=== PATIENT | male | born 1955 | race Caucasian/White ===

== ENCOUNTER 2023-06-18 07:22 | Inpatient (IN) ==
--- NOTE | 2023-06-11 12:57 | Anesthesiology Consultation ---
Date of Service June 11, 2023 Assessment & Plan (1) Encounter for pre-operative examination: - will request most recent ICD report and cardiology office note. - check BSG am DOS. - ICD: does not need ICD rep perioperatively from anesthesia perspective per Dr. Breaux 01/22/23. - medical clearance 06/02/23: "...cleared for scheduled surgery..." - cardiology clearance 05/13/23: "...preoperative cardiac risk assessment...reviewed the clinical history, medications and relevant noninvasive testing. Based on these findings, I would consider the patient to be a low risk from a cardiac standpoint...no cardiac contraindications for the planned surgery..." - Per cytotechnologist supervisor on 06/04/23: No known infectious disease contacts, current infectious disease symptoms in past 10 days or COVID positive test result in the past 30 days. Chart Review Chart Review: Pending: Refer to Additional Notes / Consult section and Patient NOT seen in Pre Admission Testing History Surgery Operation Date: 06/18/23 07:45 Proposed Procedures p L3-L5 Decompression and Fusion, Possible L2-L3, Hardware Removal L5-S1 with Spinal Cord Monitoring - Yeison Ernandez, Height/Weight Height: 6 ft Weight: 75.296 kg Allergies Allergy/AdvReac Type Severity Reaction Status Date / Time Bactrim Allergy Intermediate HIVES Unverified 02/07/14 07:17 methocarbamol Allergy Intermediate Hives Verified 06/04/23 08:45 protamine Allergy Intermediate Unknown Verified 06/04/23 08:45 sulfamethoxazole [Bactrim] Allergy Intermediate Hives Verified 06/04/23 08:45 trimethoprim [Bactrim] Allergy Intermediate Hives Verified 06/04/23 08:45 atorvastatin AdvReac Intermediate Sore joints Verified 06/04/23 08:45 Medications Home Medications Medication Instructions Recorded Confirmed Last Taken aspirin 81 mg capsule 81 mg PO QAM 01/15/23 06/04/23 Unknown insulin glargine 100 unit/mL (3 40 unit subcut BID 01/15/23 06/04/23 Unknown mL) subcutaneous pen (Lantus Solostar U-100 Insulin) ascorbic acid (vitamin C) 1,000 mg 1 g PO QAM 06/04/23 06/04/23 Unknown tablet (Vitamin C) cholecalciferol (vitamin D3) 25 25 mcg PO QID 06/04/23 06/04/23 Unknown mcg (1,000 unit) tablet (Vitamin D3) cranberry concentrate-ascorbic 1 cap PO QAM 06/04/23 06/04/23 Unknown acid 4,200 mg-20 mg capsule hydrocodone 5 mg-acetaminophen 325 2 tab PO Q4H PRN prn 06/04/23 06/04/23 Unknown mg tablet levothyroxine 125 mcg tablet 125 mcg PO QAM 06/04/23 06/04/23 Unknown semaglutide 0.25 mg or 0.5 mg (2 0.5 mg subcut UD 06/04/23 06/04/23 Unknown mg/1.5 mL) subcutaneous pen injector Past Medical History Medical History (Updated 06/11/23 @ 12:57 by Ladonna Sprague PA-C) Chronic back pain Depression Diabetes IDDM Glaucoma right History of atrial fibrillation "No issues" x years Follows with cardio/Dr. Mirela Perez ([place], [place]) History of prostate cancer Approximately 12 years ago- radiation therapy Hypothyroidism ICD (implantable cardioverter-defibrillator) in place Implanted d/t VT/AF hx Last replaced approximately 5 years ago last replaced Past Family History Family History Other No family history of adverse response to anesthesia Past Surgical History Surgical History History of cardiac radiofrequency ablation x3 - last one done approximately 9 years ago ([facility]) History of cardioversion Multiple History of implantable cardiac defibrillator (ICD) Last replaced approximately 5 years ago Hx of colonoscopy Hx of spinal surgery lumbar Social History Smoking Status: Former smoker Do You Dip or Chew Tobacco: No Smoking End Date: 40 years ago Hx Alcohol Use: No Hx Substance Use: No substance use type: does not use Testing Laboratory Results 06/02/23 WBC: 7.3 H/H: 14/39 PLATELETS: 288,000 SODIUM: 136 POTASSIUM: 4.2 CHLORIDE: 105 CO2: 27 BUN: 11 CREATININE: 0.7 GLUCOSE: 218 A1c: 6.8% Electrocardiogram Date: 01/22/23 NSR, rate 76 bpm Chest X-Ray Date: 01/22/23 No acute process. Stress Test Date: 09/09/22 MPHR 80% METS 8 Nondiagnostic, MPHR below 85% "relatively low risk for significant CAD"
[2023-06-18] MEDS ORDERED: MIDAZOLAM HCL 1 MG/ML 2ML VIAL ONE (07:28)
[2023-06-18] MEDS ORDERED: fentaNYL citrate PF 100 MCG/2 ML VIAL ONE (07:28)
[2023-06-18] MEDS: GABAPENTIN 300 MG CAP PO SCH (07:52)
[2023-06-18] MEDS: ACETAMINOPHEN 500 MG TAB PO SCH (07:52)
--- NOTE | 2023-06-18 07:52 | History & Physical Bridge Note ---
Date of Service June 18, 2023 History & Physical Bridge Note I have examined the patient, reviewed the History & Physical and in the interval since the performance of the History & Physical I have noted the following changes of clinical significance: no changes noted
--- NOTE | 2023-06-18 07:52 | History & Physical Report ---
Date of Service June 18, 2023 Assessment & Plan (1) Neurogenic claudication due to lumbar spinal stenosis: Plan: L3-L5 decompression and fusion, possible L2-L3, hardware removal L5-S1 History of Present Illness Chief Complaint: Back and leg pain Primary Care Provider: Alphonso Lopez DO This is a 68-year-old male who presents for chronic persistent back and leg pain after failing since course of nonoperative care is here for surgical invention. Allergies Allergy/AdvReac Type Severity Reaction Status Date / Time Bactrim Allergy Intermediate HIVES Unverified 02/07/14 07:17 methocarbamol Allergy Intermediate Hives Verified 06/18/23 07:41 protamine Allergy Intermediate Unknown Verified 06/18/23 07:41 sulfamethoxazole [Bactrim] Allergy Intermediate Hives Verified 06/18/23 07:41 trimethoprim [Bactrim] Allergy Intermediate Hives Verified 06/18/23 07:41 atorvastatin AdvReac Intermediate Sore joints Verified 06/18/23 07:41 Home Medications Medication Instructions Recorded Confirmed Type aspirin 81 mg capsule 81 mg PO QAM 01/15/23 06/18/23 History insulin glargine 100 unit/mL (3 40 unit subcut BID 01/15/23 06/18/23 History mL) subcutaneous pen (Lantus Solostar U-100 Insulin) ascorbic acid (vitamin C) 1,000 mg 1 g PO QAM 06/04/23 06/18/23 History tablet (Vitamin C) cholecalciferol (vitamin D3) 25 25 mcg PO QID 06/04/23 06/18/23 History mcg (1,000 unit) tablet (Vitamin D3) cranberry concentrate-ascorbic 1 cap PO QAM 06/04/23 06/18/23 History acid 4,200 mg-20 mg capsule hydrocodone 5 mg-acetaminophen 325 2 tab PO Q4H PRN prn 06/04/23 06/18/23 History mg tablet levothyroxine 125 mcg tablet 125 mcg PO QAM 06/04/23 06/18/23 History Past Med/Surg History Medical History (Updated 06/18/23 @ 07:52 by Yeison Ernandez DO) Depression ICD (implantable cardioverter-defibrillator) in place Implanted d/t VT/AF hx Last replaced approximately 5 years ago last replaced Hypothyroidism Diabetes IDDM Glaucoma right Chronic back pain History of prostate cancer Approximately 12 years ago- radiation therapy History of atrial fibrillation "No issues" x years Follows with cardio/Dr. Mirela Perez ([place], [place]) Surgical History Hx of colonoscopy Hx of spinal surgery lumbar History of implantable cardiac defibrillator (ICD) Last replaced approximately 5 years ago History of cardioversion Multiple History of cardiac radiofrequency ablation x3 - last one done approximately 9 years ago ([facility]) Family History Other No family history of adverse response to anesthesia Social History Smoking Status: Former smoker Smoking End Date: 40 years ago; Second Hand Exposure: No; Do You Dip or Chew Tobacco: No; Tobacco Cessation Education Requested by Patient: No Hx Alcohol Use: No Hx Substance Use: No Preferred Language: Bahraini Communication Ability: Effective Sketch Maker Required: No Beliefs That Will Affect Care: None Current Living Situation: Alone Other Information That Helps Us Care for You: No Feels Safe at Home: Yes Safety Concerns: Feels Safe At This Time Assistive Devices: Contacts, Denture - Upper and Glasses Physical Exam Physical Exam: Patient is alert and oriented Heart regular in rhythm Lungs clear
[2023-06-18] MEDS: LR 15ML/HR IV SCH (07:53)
[2023-06-18] MEDS: ceFAZolin 2000MG 2,000 MG/15 ML SYR IV SCH ×2 (08:40→17:39)
[2023-06-18] MEDS ORDERED: ePHEDrine sulfate 50 MG/ML AMP IV PRN (08:58)
[2023-06-18] MEDS ORDERED: ATROPINE SULFATE 0.1 MG/ML 10ML SYR IV PRN (08:58)
[2023-06-18] MEDS ORDERED: PROMETHAZINE HCL 6.25 MG in SODIUM CHLORIDE 0.9% 50 ML IV PRN (08:58)
[2023-06-18] MEDS ORDERED: ONDANSETRON INJ 2 MG/ML 2 ML VIAL ONE (09:03)
[2023-06-18] MEDS ORDERED: PROPOFOL IV EMULSION 10 MG/ML 20 ML VIAL IV ONE (09:03)
[2023-06-18] MEDS ORDERED: LIDOCAINE 2% 2 ML VIAL/AMP(20MG/ML) INFIL ONE (09:03)
[2023-06-18] MEDS ORDERED: DEXAMETHASONE SOD INJ 4 MG/ML VIAL ONE ×2 (09:03→10:52)
[2023-06-18] MEDS ORDERED: ROCURONIUM BROMIDE 10 MG/ML 5 ML VIAL IV ONE (09:03)
[2023-06-18] MEDS ORDERED: ePHEDrine sulfate 50 MG/ML AMP ONE (09:07)
[2023-06-18] MEDS ORDERED: HYDROmorphone INJ 2 MG/ML SYR/VIAL ONE (09:24)
[2023-06-18] MEDS: ceFAZolin 330 MG/ML 1 GM VIAL ONE (09:31)
[2023-06-18] MEDS: BUPIVACAINE/EPINEPHRINE 0.5% MPF 1:200,000 30 ML VIAL ONE (09:32)
[2023-06-18] MEDS: FLOSEAL HEMOSTATIC MATRIX 10ML TOP ONE (10:55)
[2023-06-18] MEDS ORDERED: SUGAMMADEX SODIUM 200 MG/2 ML VIAL IV ONE (10:57)
--- NOTE | 2023-06-18 11:03 | Operative Report ---
Post Operative Report Pre & Post Diagnosis Operation Date: 06/18/23 09:35 Pre-Op Diagnosis: Lumbar Spondylosis, Lumbar Rediculopathy Post-Op Diagnosis: Lumbar Spondylosis, Lumbar Rediculopathy I identified the patient and participated in the time-out.: Yes Procedure Operation Date: 06/18/23 09:35 Actual Procedures #1 removal of posterior instrumentation L5-S1. #2 exploration of fusion L5-S1. #3 lumbar decompression bilaterally facetectomies and foraminotomies L3-L4 L4-5. #4 posterior spinal fusion L3-L4 L4-5 and #5 placement posterior instrumentati on L3-S1. #6 interbody fusion L3-L4 L4-L5. #7 placement Spira 12 x 26 mm at L3-L4 and 11 x 26 mm at L4-5. #8 placement locally harvested morselized autograft and posterior gutters. #9 placement infuse collagen sponge combined with Koros bone graft in the posterior gutters and course The interbody space. Surgeon Yeison Ernandez, Forest Engineer Marco Grider Estimated Blood Loss 300 Findings Consistent with Post-Op Diagnosis Specimens None Indications This is a 68-year-old male presents above-mentioned diagnosis after failed course of nonoperative care is here for surgical intervention. Description of Procedure Patient was met with identified informed consent obtained. Patient was then taken to the operative suite underwent patient placed in a prone position on the Eek table top Charlie frame. All bony prominences well-padded eyes inspected to ensure no external pressure placed upon the bed at this point the lumbar spine is prepped and draped in a sterile fashion. Sharp dissection with the assistance of Bovie cautery from down to and exposing the lamina transverse processes of L3 L4-5 and the sacral ala bilaterally. Then proceeded with the hardware and L5-S1 bilaterally explore the fusion mass noting it to be intact. Informed complete laminectomy of L4 L3 including bilaterally facetectomies and foraminotomies addressing severe spinal stenosis. Pedicle screws were then placed at L3 L4-5 and S1 levels bilaterally with assistance of fluoroscopy the pelvis as shyla placed. By way the transforaminal approach on the right a complete discectomy of L4-L5 was performed endplates guided to subcortical mean bone and a 10 x 26 mm Spira cage filled with Koros bone graft tapped in position. Then proceeded to L3-L4 and again by way the transforaminal portion of right complete discectomy performed endplates guided to subcortically bone and a 12 x 26 mm Spira cage filled with Koros tapped into position. Rods were then compressed locked in final position bilaterally. The transverse processes of L3 L4-5 and burred to subcortical bleeding bone. Infuse collagen sponge, mass graft locally harvested morselized graft was placed in the posterior gutters. 15 round LELE drain inserted. The incision was then closed with 1 Vicryl the fascia 2-0 Vicryl subcutaneously and 4 Monocryl for final skin anderson sure. Steri-Strips Stratus in place. Patient waken taken to PACU in stable condition. Please note spinal cord monitoring was utilized at the procedure no changes noted. Lastly Marco Grider was present at the entire surgeon while the patient positioning complex course of the surgery and final skin closure. I attest to the content of the Intraoperative Record and any orders documented therein. Any exceptions are noted below.
--- NOTE | 2023-06-18 11:19 | Fluoroscopy Report ---
FL lumbar spine 2-3V CLINICAL HISTORY: Decompression and fusion. COMPARISON STUDY: CT lumbar myelogram February 07, 2014. FLUOROSCOPY TIME: 16 seconds. Ka, r: 9.55 mGy FLUOROSCOPIC IMAGES: 2 FINDINGS: Previous L5-S1 discectomy is noted. Fluoroscopy was provided for during hardware removal an d interval L3-L4 and L4-L5 discectomies with posterior decompression and pedicle screw fusion from L3 through S1. IMPRESSION: Fluoroscopy provided during hardware removal and posterior decompression and fusion, as detailed above. ACT 112: Negative or not required by law. Electronically signed by: Chang Pineda M.D. 06/18/2023 11:18 AM
[2023-06-18] MEDS: HYDROmorphone INJ 2 MG/ML SYR/VIAL IV PRN ×2 (11:25→12:38)
[2023-06-18] MEDS ORDERED: PHARMACY GLYCEMIC MGMT CONSULT PRN (13:49)
[2023-06-18] MEDS ORDERED: ACETAMINOPHEN 1,000 MG/100 ML VIAL IV PRN (13:49)
[2023-06-18] MEDS ORDERED: LORazepam 0.5 MG in SYRINGE 0.25 ML IV PRN (13:49)
[2023-06-18] MEDS ORDERED: FAMOTIDINE 20 MG TAB PO PRN (13:49)
[2023-06-18] MEDS ORDERED: PROMETHAZINE HCL 12.5 MG in SODIUM CHLORIDE 0.9% 50 ML IV PRN (13:49)
[2023-06-18] MEDS ORDERED: diphenhydrAMINE Capsule 25 MG CAP PO PRN (13:49)
[2023-06-18] MEDS ORDERED: METOCLOPRAMIDE HCL INJ 5 MG/ML 2 ML VIAL IV PRN (13:49)
[2023-06-18] MEDS ORDERED: DO NOT ADMINISTER PNEUMOCOCCAL VACCINE PRN (13:49)
[2023-06-18] MEDS ORDERED: HYDROmorphone INJ 0.5 MG/0.5 ML SYR IV PRN (13:49)
[2023-06-18] MEDS ORDERED: DO NOT ADMINISTER FLU VACCINE PRN (13:49)
[2023-06-18] MEDS ORDERED: ALUMINUM/MAGNESIUM SUSP 30 ML UDC PO PRN (13:49)
[2023-06-18] MEDS ORDERED: ONDANSETRON 4 MG OD TAB PO PRN (13:49)
[2023-06-18] MEDS ORDERED: NALOXONE HCL 0.4 MG/1 ML VIAL/CARP IV PRN (13:49)
[2023-06-18] MEDS ORDERED: ACETAMINOPHEN 500 MG TAB PO PRN (13:49)
[2023-06-18] MEDS: HYDROmorphone INJ 2 MG/ML SYR/VIAL ONE (13:52)
[2023-06-18] MEDS: LR 60ML/HR IV SCH (13:53)
[2023-06-18] MEDS ORDERED: GLUCOSE 40% GEL 15 GM TUBE PO PRN (14:00)
[2023-06-18] MEDS ORDERED: DEXTROSE 50% 50 ML SYRINGE IV PRN (14:00)
[2023-06-18] MEDS ORDERED: GLUCAGON FOR INJ 1 MG VIAL IM PRN (14:00)
[2023-06-18] MEDS ORDERED: GLUCOSE 10 TAB/TUBE PO PRN (14:00)
--- NOTE | 2023-06-18 14:06 | Pharmacy Report ---
Pharmacy Glycemic Short Note 2 - Date of Service June 18, 2023 - Glycemic Short BSG Results (Last 24 hours): 06/18/23 06/18/23 07:55 11:34 POC Glucose 102 H 138 H OUTPATIENT ANTIDIABETIC REGIMEN: * Lantus 40 units SC BID * Ozempic 0.5 mg SC weekly HbA1c: 10.4% (01/22/23) ASSESSMENT: * CD is a 68 year old male POD #0 s/p L3-L5 spinal decompression/fusion * Received 8 mg IV dexamethasone in OR, ordered 6 mg IV daily x 3 starting tomorrow morning * Preop BSG of 102 mg/dL and postop BSG of 138 mg/dL * HbA1c in January suggests poor outpatient glycemic control * Will give initial dose of basal now to help cover steroids and will plan on BID ongoing PLAN FOR INPATIENT GLYCEMIC CONTROL: * Basal insulin * Lantus 30 units SQ x 1 postoperatively * Lantus 10-20-30 units SC HS x 1 * Reassess in AM * Bolus insulin * NovoLog per scale ACHS or Q6hrs while NPO * Goal Range: Low 110 mg/dL - High 140 mg/dL * Correction Factor: 20 mg/dL/unit * Nutritional / Prandial insulin per carb ratio of 1 unit per 7 grams CHO consumed
[2023-06-18] MEDS: INSULIN ASPART PER UNIT CHARGE SC SCH (14:20)
[2023-06-18] MEDS: LANTUS PER UNIT CHARGE SC ONE (14:21)
[2023-06-18] MEDS: SODIUM CHLORIDE 0.9% 1,000 ML IV SCH (14:26)
--- NOTE | 2023-06-18 14:30 | Anesthesiology Progress Note ---
Date of Service June 18, 2023 Anesthesia Post Procedure Vital Signs Vital Signs: Temp Pulse Pulse Resp BP Pulse Ox O2 Del Method 06/18/23 13:59 36.8 C 70 16 156/83 H 98 Room Air 06/18/23 13:30 36.8 C 73 16 160/84 H 100 Room Air 06/18/23 13:15 74 12 137/80 100 Room Air 06/18/23 13:00 72 12 139/103 H 100 Nasal Cannula 06/18/23 12:45 68 12 141/81 H 99 Nasal Cannula 06/18/23 12:15 66 12 164/88 H 99 Room Air 06/18/23 12:05 36.5 C 71 14 140/90 99 Room Air 06/18/23 11:55 72 16 140/92 100 Nasal Cannula 06/18/23 11:45 70 12 151/79 H 100 Nasal Cannula 06/18/23 11:35 76 23 137/87 94 Nasal Cannula 06/18/23 11:25 67 20 165/87 H 98 Nasal Cannula 06/18/23 11:24 36.1 C L 72 20 172/89 H 99 Nasal Cannula 06/18/23 07:40 36.7 C 81 20 158/105 H 100 Room Air O2 Flow Rate 06/18/23 13:59 06/18/23 13:30 06/18/23 13:15 0 06/18/23 13:00 2 06/18/23 12:45 3 06/18/23 12:15 0 06/18/23 12:05 0 06/18/23 11:55 2 06/18/23 11:45 4 06/18/23 11:35 6 06/18/23 11:25 6 06/18/23 11:24 6 06/18/23 07:40 Pain Intensity Lower Back: Pain Intensity: 6 Transfer of Care Handoff Completed per policy Notes Mental Status: alert / awake / arousable and participated in evaluation Nausea / Vomiting: adequately controlled Pain: adequately controlled Airway Patency, RR, SpO2: stable & adequate BP & HR: stable & adequate Hydration State: stable & adequate Anesthetic Complications: no major complications apparent and Pt Satisfied with anesthetic care Notes: Pt AICD was evaluated by the elecrophysiology leather goods sales representative to confirm that it is intact and functioning as intended.
[2023-06-18] MEDS: oxyCODONE HCL IR 5 MG TAB (IMMEDIATE RELEASE) PO PRN (16:51)
[2023-06-18] MEDS: CHOLECALCIFEROL 25 MCG (1000 UNITS) TAB PO SCH (16:51)
[2023-06-18] MEDS: HYDROmorphone INJ 1 MG/ML SYRINGE IV PRN (19:26)
[2023-06-18] MEDS: DOCUSATE SODIUM/SENNA 50/8.6MG TAB PO SCH (19:28)
[2023-06-18] MEDS: LORazepam 0.5 MG TAB PO PRN (21:00)
[2023-06-18] MEDS: LANTUS PER UNIT CHARGE SC SCH (21:10)
[2023-06-18] MEDS: hydrOXYzine HCl 25 MG TAB PO PRN (23:23)
[2023-06-19] MEDS: ONDANSETRON INJ 2 MG/ML 2 ML VIAL IV PRN (02:48)
[2023-06-19] MEDS: POLYETHYLENE (MIRALAX) 17 GM PACK PO SCH (04:56)
[2023-06-19] MEDS: LEVOTHYROXINE SODIUM 125 MCG TABLET PO SCH (04:56)
[2023-06-19] MEDS: traMADol HCL 50 MG TABLET PO PRN (05:02)
[2023-06-19 07:39] LABS: Basophils # (auto) 0.05 K/uL (0.00-0.20); Basophils % (auto) 0.3 %; Hematocrit (blood only) 30.8 % (42.0-52.0); Hemoglobin 10.5 g/dl (14.0-18.0); Immature Granulocytes # (auto) 0.11 K/uL (0.01-0.20); Immature Granulocytes % (auto) 0.7 %; Lymphocytes # (auto) 1.32 K/uL (1.20-3.40); Lymphocytes % (auto) 8.4 %; Mean Corpuscular Hemoglobin 30.5 pg (25.0-34.0); Mean Corpuscular Hgb Conc 34.1 g/dL (32.0-36.0); Mean Corpuscular Volume 89.5 fL (80.0-100.0); Mean Platelet Volume 9.7 fL (9.4-12.4); Monocytes # (auto) 1.31 K/uL (0.11-0.59); Monocytes % (auto) 8.3 %; Neutrophils # (auto) 12.93 K/uL (1.40-6.50); Neutrophils % (auto) 82.3 %; Platelet Count 234 K/uL (130-400); RDW Coefficient of Variation 12.8 % (11.5-14.5); RDW Standard Deviation 41.9 fL (36.4-46.3); Red Blood Count 3.44 M/uL (4.70-6.10); White Blood Count 15.72 K/ul (4.8-10.8)
[2023-06-19 08:02] LABS: BUN Creatinine Ratio 23.8 (10-20); Calcium 8.2 mg/dl (8.6-10.3); Creatinine Clr Calc Pharmacy 118.3 ml/min; Est GFR (African American) 116.5 ml/min; Est GFR (Non-African American) 100.5 ml/min
--- NOTE | 2023-06-19 08:19 | Orthopedic Progress Note ---
Date of Service June 19, 2023 Assessment & Plan (1) Neurogenic claudication due to lumbar spinal stenosis: Plan: Fuentes is postoperative day 1 status post hard removal L5-S1, decompression and fusion L3-5. He will start physical therapy today. DVT prophylaxis is in the form of teds and SCDs. Continue with pain control. Maintain LELE drain. Anticipate discharge home within the next couple of days. Admission and Anticipated Discharge Date Admission Date: June 18, 2023 Subjective Fuentes is postoperative day 1 status post hardware removal L5-S1, decompression instrumented fusion L3-5. He had an uneventful evening. H&H this morning are 10.5 and 30.8 respectively. LELE drain output last shift is 40 cc. Preoperative pain is greatly improved. Complains of back pain only. Review of Systems Review of Systems: All systems reviewed & are unremarkable except as noted in HPI & below Physical Exam Physical Exam: He is lying in bed in no acute distress Alert and oriented x 3 Lumbar dressing is clean dry and intact with functioning LELE drain Calf soft and nontender bilaterally Strength intact bilateral lower extremities Results & Data Vital Signs (Past 12 Hours) Vital Signs Temp Pulse Resp BP Pulse Ox O2 Del Method 06/19/23 07:39 36.5 C 74 16 109/65 96 Room Air 06/19/23 03:25 36.3 C L 78 16 148/74 H 98 Room Air 06/18/23 23:29 36.5 C 77 16 125/72 98 Room Air
[2023-06-19] MEDS: ASPIRIN 81 MG ECTAB PO SCH (08:52)
[2023-06-19] MEDS: dexAMETHasone 6 MG in SYRINGE 0 ML IV SCH (08:52)
[2023-06-19] MEDS: ASCORBIC ACID 500 MG TAB PO SCH (08:52)
[2023-06-19] MEDS: LANTUS PER UNIT CHARGE SC SCH (09:09)
--- NOTE | 2023-06-19 12:36 | Hospitalist Consultation ---
Date of Consultation June 19, 2023 Assessment & Plan (1) Neurogenic claudication due to lumbar spinal stenosis: - Patient had hardware removal L5-S1 and decompression and fusion L3-[address] Ernandez on 06/18/2023. - Pain management, DVT prophylaxis, activity levels, and medication reconciliation per the primary team. (2) Acute blood loss anemia: - Acute blood loss anemia postoperatively, not requiring transfusion - Patient is hemodynamically stable Plan Patient is ready for discharge from a medical perspective. Please contact with any medical questions or concerns. Supervising Physician Co-Signing Physician Notes Patient was seen and examined independently I discussed the case with Hannah Oliver PAC 68-year-old male underwent L3-5 decompression fusion on 06/18/[address] Ernandez. Medical problems typically include insulin requiring diabetes and hypothyroidism. Patient is fairly fit and was having radicular pain now resolved after surgery. Physical examination he is in no distress he is walking about his room his cardiac exam is regular his lungs are clear Anticipate his medical problems to be stable he has mild acute blood loss anemia and disposition will be dependent upon surgical decision I reviewed pertinent past medical social family history and also the plan of care and agree with the plan of care. Any exceptions will be noted below History of Present Illness Reason for Consultation: Medical management Requesting Physician: Yeison Ernandez DO Attending Physician: Yeison Ernandez DO History of Present Illness Patient had hardware removal L5-S1 and decompression and fusion L3-5 surgery due to neurogenic claudication secondary to lumbar spinal stenosis with Dr. Ernandez on 06/18/2023. Patient appeared well and was ambulating around his room during my evaluation. He states that his pain is well-managed and has no complaints at this time. He denies chest pain, shortness of breath, dizziness, lightheadedness, nausea/vomiting, abdominal pain, or urinary symptoms. Patient remains medically stable and is ready for discharge from medical perspective. Allergies Allergy/AdvReac Type Severity Reaction Status Date / Time Bactrim Allergy Intermediate HIVES Unverified 02/07/14 07:17 methocarbamol Allergy Intermediate Hives Verified 06/18/23 07:41 protamine Allergy Intermediate Unknown Verified 06/18/23 07:41 sulfamethoxazole [Bactrim] Allergy Intermediate Hives Verified 06/18/23 07:41 trimethoprim [Bactrim] Allergy Intermediate Hives Verified 06/18/23 07:41 atorvastatin AdvReac Intermediate Sore joints Verified 06/18/23 07:41 Home Medications Medication Instructions Recorded Confirmed Type aspirin 81 mg capsule 81 mg PO QAM 01/15/23 06/18/23 History insulin glargine 100 unit/mL (3 40 unit subcut BID 01/15/23 06/18/23 History mL) subcutaneous pen (Lantus Solostar U-100 Insulin) ascorbic acid (vitamin C) 1,000 mg 1 g PO QAM 06/04/23 06/18/23 History tablet (Vitamin C) cholecalciferol (vitamin D3) 25 25 mcg PO QID 06/04/23 06/18/23 History mcg (1,000 unit) tablet (Vitamin D3) cranberry concentrate-ascorbic 1 cap PO QAM 06/04/23 06/18/23 History acid 4,200 mg-20 mg capsule hydrocodone 5 mg-acetaminophen 325 2 tab PO Q4H PRN prn 06/04/23 06/18/23 History mg tablet levothyroxine 125 mcg tablet 125 mcg PO QAM 06/04/23 06/18/23 History semaglutide 0.25 mg or 0.5 mg (2 0.5 mg subcut WK 06/18/23 06/18/23 History mg/3 mL) subcutaneous pen injector (Ozempic) tramadol 50 mg tablet 50 mg PO Q6H PRN pain, moderate 06/18/23 Rx #30 tabs Patient History Medical History (Updated 06/19/23 @ 12:33 by Hannah Oliver PA-C) Depression ICD (implantable cardioverter-defibrillator) in place Implanted d/t VT/AF hx Last replaced approximately 5 years ago last replaced Hypothyroidism Diabetes IDDM Glaucoma right Chronic back pain History of prostate cancer Approximately 12 years ago- radiation therapy History of atrial fibrillation "No issues" x years Follows with cardio/Dr. Mirela Perez ([place]) Surgical History Hx of colonoscopy Hx of spinal surgery lumbar History of implantable cardiac defibrillator (ICD) Last replaced approximately 5 years ago History of cardioversion Multiple History of cardiac radiofrequency ablation x3 - last one done approximately 9 years ago ([facility]) Family History Other No family history of adverse response to anesthesia Social History Smoking Status: Former smoker Smoking End Date: 40 years ago; Second Hand Exposure: No; Do You Dip or Chew Tobacco: No; Tobacco Cessation Education Requested by Patient: No Hx Alcohol Use: No Hx Substance Use: No Preferred Language: Faroese Communication Ability: Effective Fisher Weir Required: No Beliefs That Will Affect Care: None Current Living Situation: Alone Other Information That Helps Us Care for You: No Feels Safe at Home: Yes Safety Concerns: Feels Safe At This Time Assistive Devices: Walker Physical Exam Physical Exam: General: No acute distress, nondiaphoretic, well-developed, well-nourished. Walking comfortably around hospital room. Skin: The skin was without rashes, erythema, edema, or bruising. Cardiac: Regular rate and rhythm without murmurs gallops or rubs. Pulm: Clear to auscultation bilaterally without wheezes, rales or rhonchi. No retractions or accessory muscle use. Abdominal: Positive bowel sounds x 4. Soft, nontender, without masses or organomegaly. No guarding or rebound tenderness. Neuro: A&O x3. No focal neurological deficits. MSK: Lumbar dressing is clean, dry, and intact. LELE drain in place. Adequate perfusion of lower extremities bilaterally. Results & Data Results & Data Vital Signs (Past 12 Hours) Vital Signs Temp Pulse Resp BP Pulse Ox O2 Del Method 06/19/23 07:39 36.5 C 74 16 109/65 96 Room Air 06/19/23 03:25 36.3 C L 78 16 148/74 H 98 Room Air Laboratory Results Reviewed CBC Reviewed chemistries PG Care Time/CCT Total # of Minutes Spent Total Time Spent with Patient: Total time spent is greater than 50% in coordination of care (as documented) at patient's floor/unit and/or counseling patient: Coding Level of Care Code 00476 IN/OBS CONSULT LVL 3,45M Diagnoses Neurogenic claudication due to lumbar spinal stenosis M48.062 Acute blood loss anemia D62
[2023-06-19] MEDS: CARBOHYDRATES FOR HYPOGLYCEMIA PO PRN (14:24)
[2023-06-19] MEDS ORDERED: LANTUS PER UNIT CHARGE SQ ONE (21:00)
--- NOTE | 2023-06-20 07:54 | Hospitalist Progress Note ---
Date of Service June 20, 2023 Assessment & Plan (1) Neurogenic claudication due to lumbar spinal stenosis: Plan: - Patient had hardware removal L5-S1 and decompression and fusion L3-[address] Ernandez on 06/18/2023. - Pain management, DVT prophylaxis, activity levels, and medication reconciliation per the primary team. (2) Acute blood loss anemia: Plan: - Acute blood loss anemia postoperatively, not requiring transfusion - Patient remains hemodynamically stable Plan Patient is ready for discharge from a medical perspective. Disposition is dependent upon surgical decision. Please contact with any medical questions or concerns. Admission and Anticipated Discharge Date Admission Date: June 18, 2023 Subjective Patient had hardware removal L5-S1 and decompression and fusion L3-5 surgery due to neurogenic claudication secondary to lumbar spinal stenosis with Dr. Ernandez on 06/18/2023. He states he did not sleep well last night because of pain. He reports substantial back pain, but feels that it is well-controlled with his pain medication. He continues to ambulate well around his room. He has no other complaints at this time. Denies lightheadedness, dizziness, shortness of breath, chest pain, abdominal pain, or urinary problems. Physical Exam Physical Exam: General: No acute distress, nondiaphoretic, well-developed, well-nourished. Walking comfortably around hospital room. Skin: The skin was without rashes, erythema, edema, or bruising. Cardiac: Regular rate and rhythm without murmurs gallops or rubs. Pulm: Clear to auscultation bilaterally without wheezes, rales or rhonchi. No retractions or accessory muscle use. Abdominal: Positive bowel sounds x 4. Soft, nontender, without masses or orga nomegaly. No guarding or rebound tenderness. Neuro: A&O x3. No focal neurological deficits. MSK: Lumbar dressing is clean, dry, and intact. LELE drain in place. Adequate perfusion of lower extremities bilaterally. Results & Data Results & Data Vital Signs (Past 12 Hours) Vital Signs Temp Pulse Resp BP Pulse Ox O2 Del Method 06/20/23 07:42 36.7 C 72 16 132/79 99 Room Air 06/19/23 20:25 36.7 C 81 16 140/76 98 Room Air Laboratory Results Reviewed I&Os PG Care Time/CCT Total # of Minutes Spent Total Time Spent with Patient: Total time spent is greater than 50% in coordination of care (as documented) at patient's floor/unit and/or counseling patient: Coding Level of Care Code 45612 SUB INP/OBS CARE MIN Diagnoses Neurogenic claudication due to lumbar spinal stenosis M48.062 Acute blood loss anemia D62
--- NOTE | 2023-06-20 08:16 | Orthopedic Progress Note ---
Date of Service June 20, 2023 Assessment & Plan (1) Neurogenic claudication due to lumbar spinal stenosis: Plan: Fuentes is postoperative day 2 status post hard removal L5-S1, decompression and instrumented fusion L3-5. Will work on pain control. Continue with physical therapy and ambulation today. Continue with aggressive bowel regimen. DVT prophylaxis is in the form of teds and SCDs. Maintain LELE drain due to output. Anticipate discharge home tomorrow. Admission and Anticipated Discharge Date Admission Date: June 18, 2023 Subjective Fuentes is postoperative day 2 status post hardware removal L5-S1, decompression and fusion L3-5. Has a bit more back pain today. Passing flatus but no bowel movement. LELE drain output last shift was 70 cc. Yesterday in physical therapy ambulated 200 feet plus the hallways. Radicular leg pain he had preoperatively has resolved. Overall doing well. Review of Systems Review of Systems: All systems reviewed & are unremarkable except as noted in HPI & below Physical Exam Physical Exam: He sitting at the desk in no acute distress Alert and oriented x 3 Lumbar dressing is clean dry and intact with functioning LELE drain Calf soft and nontender bilaterally Strength intact bilateral lower extremities Results & Data Vital Signs (Past 12 Hours) Vital Signs Temp Pulse Resp BP Pulse Ox O2 Del Method 06/20/23 07:42 36.7 C 72 16 132/79 99 Room Air 06/19/23 20:25 36.7 C 81 16 140/76 98 Room Air
[2023-06-20] MEDS: LANTUS PER UNIT CHARGE SQ SCH ×2 (08:36→21:42)
[2023-06-20] MEDS: MAGNESIUM HYDROXIDE SUSP 30 ML UDC PO PRN (08:39)
--- NOTE | 2023-06-20 13:45 | Pharmacy Report ---
Pharmacy Glycemic Short Note 2 - Date of Service June 20, 2023 - Glycemic Short BSG Results (Last 24 hours): 06/19/23 06/19/23 06/19/23 14:20 14:42 15:23 POC Glucose 59 L* 58 L* 70 06/19/23 06/19/23 06/20/23 16:33 20:25 07:42 POC Glucose 154 H 243 H 165 H 06/20/23 11:28 POC Glucose 105 H OUTPATIENT ANTIDIABETIC REGIMEN: * Lantus 40 units SC BID * Ozempic 0.5 mg SC weekly HbA1c: 10.4% (01/22/23) ASSESSMENT: 06/19 * POD#3 today, continues to receive 6 mg IV dexamethasone in the AM through 06/20 * Patient had hypoglycemic episode yesterday after tightening carb ratio, loosened with improvement in BSGs- continue to monitor * Fasting this AM 165 mg/dL with 40 units of basal yesterday, will trail 50-60 units today 06/17 * CD is a 68 year old male POD #0 s/p L3-L5 spinal decompression/fusion * Received 8 mg IV dexamethasone in OR, ordered 6 mg IV daily x 3 starting tomorrow morning * Preop BSG of 102 mg/dL and postop BSG of 138 mg/dL * HbA1c in January suggests poor outpatient glycemic control * Will give initial dose of basal now to help cover steroids and will plan on BID ongoing PLAN FOR INPATIENT GLYCEMIC CONTROL: * Basal insulin * Lantus 30 units SQ x this AM * Lantus 20-30 units SC HS x 1 * Reassess in AM * Bolus insulin * NovoLog per scale ACHS or Q6hrs while NPO * Goal Range: Low 110 mg/dL - High 140 mg/dL * Correction Factor: 30 mg/dL/unit * Nutritional / Prandial insulin per carb ratio of 1 unit per 10 grams CHO consumed
[2023-06-21] MEDS: bisacodyL 10 MG SUPP PR PRN (11:46)
--- NOTE | 2023-06-21 11:56 | Orthopedic Progress Note ---
Date of Service June 21, 2023 Assessment & Plan (1) Neurogenic claudication due to lumbar spinal stenosis: Plan: At this time patient is still struggling with significant axial back pain. His leg pain is improved. Will watch for 1 more day and anticipate discharge home tomorrow. Admission and Anticipated Discharge Date Admission Date: June 18, 2023 Subjective Back pain controlled leg pain improved. Physical Exam Physical Exam: Patient is good strength testing. Is comfortable. Results & Data Vital Signs (Past 12 Hours) Vital Signs Temp Pulse Resp BP Pulse Ox O2 Del Method 06/21/23 07:46 36.6 C 76 18 158/68 H 97 Room Air
--- NOTE | 2023-06-21 13:24 | Pharmacy Report ---
Pharmacy Glycemic Short Note 2 - Date of Service June 21, 2023 - Glycemic Short BSG Results (Last 24 hours): 06/20/23 06/20/23 06/21/23 16:24 20:41 07:23 POC Glucose 195 H 185 H 90 06/21/23 11:19 POC Glucose 263 H OUTPATIENT ANTIDIABETIC REGIMEN: * Lantus 40 units SC BID * Ozempic 0.5 mg SC weekly HbA1c: 10.4% (01/22/23) ASSESSMENT: 06/20 * Patient received total of 86 units of insulin yesterday, of which 60 units were basal * Fasting BSG 90 mg/dL - trending downward, adjustments made to basal dosing over last couple of days so not at steady state with dosing - will plan to scale back slightly on basal for today * Of note, steroids falling off today - may need to loosen novolog parameters tomorrow 06/19 * POD#3 today, continues to receive 6 mg IV dexamethasone in the AM through 06/20 * Patient had hypoglycemic episode yesterday after tightening carb ratio, loosened with improvement in BSGs- continue to monitor * Fasting this AM 165 mg/dL with 40 units of basal yesterday, will trail 50-60 units today 06/17 * CD is a 68 year old male POD #0 s/p L3-L5 spinal decompression/fusion * Received 8 mg IV dexamethasone in OR, ordered 6 mg IV daily x 3 starting tomorrow morning * Preop BSG of 102 mg/dL and postop BSG of 138 mg/dL * HbA1c in January suggests poor outpatient glycemic control * Will give initial dose of basal now to help cover steroids and will plan on BID ongoing PLAN FOR INPATIENT GLYCEMIC CONTROL: * Basal insulin * Lantus 15-20 units daily in AM * Lantus 25-30 units HS * Bolus insulin * NovoLog per scale ACHS or Q6hrs while NPO * Goal Range: Low 110 mg/dL - High 140 mg/dL * Correction Factor: 30 mg/dL/unit * Nutritional / Prandial insulin per carb ratio of 1 unit per 10 grams CHO c onsumed
[2023-06-21] MEDS: SOD PHOSPHATE/SOD BIPHOSPHATE ENEMA 132 ML BTL PR PRN (14:28)
--- NOTE | 2023-06-21 19:59 | Hospitalist Progress Note ---
Date of Service June 21, 2023 Assessment & Plan (1) Neurogenic claudication due to lumbar spinal stenosis: Plan: - Patient had hardware removal L5-S1 and decompression and fusion L3-[address] Ernandez on 06/18/2023. - Pain management, DVT prophylaxis, activity levels, and medication reconciliation per the primary team. (2) Acute blood loss anemia: Plan: - Acute blood loss anemia postoperatively, not requiring transfusion - Patient remains hemodynamically stable Plan Patient is ready for discharge from a medical perspective. Disposition is dependent upon surgical decision. Medicine will sign off at this time. Please contact with any medical questions or concerns. Admission and Anticipated Discharge Date Admission Date: June 18, 2023 Subjective Patient had hardware removal L5-S1 and decompression and fusion L3-5 surgery due to neurogenic claudication secondary to lumbar spinal stenosis with Dr. Ernandez on 06/18/2023. He continues to report significant back pain, but feels that it is well-controlled with his pain medication. He continues to ambulate well around his room. He has no other complaints at this time. Denies lightheadedness, dizziness, shortness of breath, chest pain, abdominal pain, urinary problems, or constipation. Ortho anticipates discharge home tomorrow. Medicine will sign off at this time please contact with any further questions or concerns. Physical Exam Physical Exam: General: No acute distress, nondiaphoretic, well-developed, well-nourished. Walking comfortably around hospital room. Skin: The skin was without rashes, erythema, edema, or bruising. Cardiac: Regular rate and rhythm without murmurs gallops or rubs. Pulm: Clear to auscultation bilaterally without wheezes, rales or rhonchi. No retractions or accessory muscle use. Abdominal: Positive bowel sounds x 4. Soft, nontender, without masses or organomegaly. No guarding or rebound tenderness. Neuro: A&O x3. No focal neurological deficits. MSK: Lumbar dressing is clean, dry, and intact. LELE drain in place. Adequate perfusion of lower extremities bilaterally. Results & Data Results & Data Laboratory Results Reviewed I&Os PG Care Time/CCT Total # of Minutes Spent Total Time Spent with Patient: Total time spent is greater than 50% in coordination of care (as documented) at patient's floor/unit and/or counseling patient: Coding Level of Care Code 90272 SUB INP/OBS CARE Diagnoses Neurogenic claudication due to lumbar spinal stenosis M48.062 Acute blood loss anemia D62
[2023-06-21] MEDS: LANTUS PER UNIT CHARGE SQ SCH (20:46)
[2023-06-22] MEDS: LANTUS PER UNIT CHARGE SC SCH (08:40)
--- NOTE | 2023-06-22 14:37 | Discharge Summary ---
Date of Service June 22, 2023 Admission HPI Per Admitting Provider This is a 68-year-old male who presents for chronic persistent back and leg pain after failing since course of nonoperative care is here for surgical invention. Principal Diagnosis Lumbar spinal stenosis with neurogenic claudication Discharge Data Allergies Allergy/AdvReac Type Severity Reaction Status Date / Time Bactrim Allergy Intermediate HIVES Unverified 02/07/14 07:17 methocarbamol Allergy Intermediate Hives Verified 06/18/23 07:41 protamine Allergy Intermediate Unknown Verified 06/18/23 07:41 sulfamethoxazole [Bactrim] Allergy Intermediate Hives Verified 06/18/23 07:41 trimethoprim [Bactrim] Allergy Intermediate Hives Verified 06/18/23 07:41 atorvastatin AdvReac Intermediate Sore joints Verified 06/18/23 07:41 Consultations 06/18/23 13:49 Consult Hospitalist Routine Procedures Performed Operation Date: 06/18/23 09:35 Actual Procedures p L3-L5 Decompression and Fusion, Hardware Removal L5-S1 with Spinal Cord Monitoring(Not Applicable) - Yeison Ernandez DO Ordered Studies 06/18/23 [place] lumbar spine 2-3V Routine Hospital Course (1) Neurogenic claudication due to lumbar spinal stenosis: Patient underwent lumbar decompression fusion tolerated this well strength orthopedic for postoperative. Postop he progressed appropriately. Leg symptoms improved dramatically. Is ambulating well. LELE drain decreased as expected I suspected testing and subsequent discharge home. Discharge orders instructions from the chart for further review. Total Time Total Time Spent Total Time Spent (In Minutes): 20 minutes Discharge Plan Discharge Items Patient Disposition: Home - Self-Care Reason For Visit: Lumbar Spondylosis, Lumbar Rediculopathy Discharge Diagnosis: Lumbar spinal stenosis with radiculopathy Activity: As commented below Non-emergency contact: Primary Care Provider Call non-emergency contact if: you have any medication questions Follow-up/Referrals: Alphonso Lopez DO [Primary Care Provider] - Diet: Regular Addtl Attending Provider Instructions: ACTIVITY RECOMMENDATIONS: SELF CARE INSTRUCTIONS AFTER THORACIC/LUMBAR FUSIONS 1. You may walk to your tolerance. It is good exercise for your legs and back. Expect some back and intermittent leg aches and pains. 2. You may perform "counter-top" level activities (make a sandwich, ana with a project, etc.). 3. No bending or lifting of more than 10 pounds or back twisting of any nature (roll like a log when turning in bed). 4. You may ride in a car for 20-30 minutes at a time. No driving until after your first visit with your doctor. 5. Frequent changes of position and restricting sitting to 30 minutes at a time will help limit the amount of back spasms and stiffness you may experience. 6. You may discontinue the use of ambulatory aids (cane, crutches, etc.) once your strength and confidence allow. 7. You may chief business officer the shower and let water strike your incision when you arrive home at least once daily. Do not take a tub bath, sit in a hot tub or go into a swimming pool until after your first recheck in the office. SPECIAL CARE INSTRUCTIONS: VERY IMPORTANT TO READ AND REVIEW A. Your surgical incision has been closed with a cosmetic suture under the skin that will dissolve in about 6 weeks. In 14 days, you can use a pair of clean scissors and cut the suture that is left outside of the skin at the ends of your incision. 1. The small skin tapes can be removed 7 days after surgery if they have not fallen off by that point. 2. You may keep the wound open to air as much as possible to promote healing after post-op day number 5 unless told otherwise by your doctor. 3. If you think the wound looks like it is becoming infected (redness or worsening drainage) and/or you are experiencing fever, chill or worsening back pain and muscle spasms, contact the office so that we may evaluate you as soon as possible. B. Complications are uncommon, but please contact us if you have any signs or symptoms of: 1. wound infection (fever higher than 102.5 degrees F, redness, separation of wound, drainage, or increasing pain from the incision) 2. blood clots in legs (pain, swelling, redness and warmth in legs) 3. urinary tract infection (fever higher than 102.5 degrees F, burning upon urination or increased frequency of urination) 4. nerve problems (inability to walk on your toes or heels, numbness, loss of bowel or bladder control) 5. any other symptoms that concern you C. Please call the office at if you have any concerns or questions about your operation or recovery. D. No smoking! Smoking drastically decreases the chance of a solid fusion. E. Do not take any anti-inflammatory medications (Indocin, Advil, Motrin, Aspirin, Naprosyn, etc.) as these may inhibit the chance of a solid fusion. Tylenol is okay to take for pain. MANAGING PAIN AFTER SPINAL SURGERY 1. Narcotic medication is intended for short-term use and will be provided for surgical pain. Surgical pain usually lasts for a period of 4-6 weeks. Narcotic medication includes Percocet, Vicodin, Darvocet, Tylenol #3 or Lortab. 2. Longer-term pain is more appropriately treated with non-narcotic medication such as Tylenol ES. 3. Muscle spasm is not appropriately treated with narcotics. Muscle relaxers such as Soma, Flexeril or Skelaxin can be used along with Tylenol ES. 4. Remember that we all live with some "aches and pains". This is not unusual or uncommon after an injury or as we get older. a. Back pain is expected and may include muscle spasms for 4 to 6 weeks after surgery. The pain should gradually improve. If the pain worsens for no apparent reason, please contact the office. b. Intermittent leg pain may also be experienced and should not be concerned about unless it worsens for no apparent reason. If so, please contact the office. 5. We will provide appropriate medication within the normal guidelines of their prescribed use. We will also be very cautious and aware of potential abuse and extended duration of patients' medication needs. a. Pain medications are for your comfort and to assist with sleep and rest so that the tissue can heal. They are not provided in order to return to normal activity and should not be used through the day. To do so or worsening pain at night can result from ongoing tissue damage and development of tolerance to the prescribed medicine. 6. Please allow 2-3 days to process refills. Prescriptions will not be mailed but must be picked up at the office. FOLLOW UP VISIT: Keep your scheduled follow-up appointment. Any questions, please call the office at . Pending Studies at Discharge: No Stand-Alone Forms: My [employer], Smoking Cessation Medications and DC Order Prescriptions: New tramadol 50 mg tablet 50 mg PO Q6H PRN (Reason: pain, moderate) Qty: 30 0RF Continued aspirin 81 mg Capsule 81 mg PO QAM insulin glargine [Lantus Solostar U-100 Insulin] 100 unit/mL (3 mL) Insulin Pen 40 unit SUBCUT BID hydrocodone-acetaminophen 5-325 mg Tablet 2 tab PO Q4H PRN (Reason: prn) levothyroxine 125 mcg Tablet 125 mcg PO QAM ascorbic acid (vitamin C) [Vitamin C] 1,000 mg Tablet 1 g PO QAM cholecalciferol (vitamin D3) [Vitamin D3] 25 mcg (1,000 unit) Tablet 25 mcg PO QID cranberry conc-ascorbic acid 4,200-20 mg Capsule 1 cap PO QAM Ozempic 0.25 mg or 0.5 mg (2 mg/3 mL) Pen Injector 0.5 mg SUBCUT WK Discharge Orders: Discharge Order (Routine); Ordered 06/22/23 Ordered By: Yeison Ernandez Admission Data Admit Date/Time: 06/18/23 11:06 Attending Provider: Yeison Ernandez Admit Provider: Yeison Ernandez Primary Care Provider: Alphonso Lopez Other Interventions: Discharge Summary Assessment (RN) Last Done: 06/22/23 09:01
== END 2023-06-22 13:43 | disposition home or self-care (01) | DRG 454 ==
LOC: ASU 07:22 → 3E 11:06